=== PATIENT | male | born 1970 | race Caucasian/White ===

== ENCOUNTER 2021-11-02 18:28 | Inpatient (IN) | payer BC ==
[~2021-11-02] VITALS: Ht 190.5 cm; Wt 69.5 kg
[~2021-11-02 18:28] MED LIST: LEVEMIR FLEXPEN SC; NOVOLOG FLEX100 U/ML SC; [UNRECOGNIZED DRUG - CODE] PO
[2021-11-02 20:25] LABS: BASO % 0.3 % (0.0-2.0); EOS # 0.1 K/mm3 (0.0-0.7); EOS % 0.6 % (0.0-4.0); GRAN # 7.2 K/mm3 (1.4-6.5); GRAN % 73.6 % (42.2-75.2); LYMPH # 1.7 K/mm3 (1.2-3.4); LYMPH % 17.7 % (20.0-51.0); MEAN CELL VOLUME 88 fl (80.0-100.0); MEAN CORPUSCULAR HGB CONC 31 g/dl (33.0-37.0); MEAN PLATELET VOLUME 8.6 fl (7.4-10.4); MONO # 0.7 K/mm3 (0.1-0.6); MONO % 7.2 % (1.7-9.3); PLATELET COUNT 685 K/mm3 (130-400); RED BLOOD COUNT 3.16 M/mm3 (4.20-5.60); REDCELL DISTRIBUTION WIDTH-CV 14.4 % (11.5-14.5)
[2021-11-02 20:27] LABS: HEMATOCRIT 27.9 % (42.0-52.0); HEMOGLOBIN 8.6 g/dl (13.5-18.0); MEAN CORPUSCULAR HEMOGLOBIN 27 pg (27-31)
[2021-11-02 20:41] LABS: ALBUMIN 2.4 gm/dL (3.5-5.0); BILIRUBIN,TOTAL 0.3 mg/dL (0.2-1.2); C-REACTIVE PROTEIN 7.97 mg/dL (0.00-0.50); CALCIUM 8.9 mg/dL (8.4-10.2); CREATININE, serum 1.15 mg/dL (0.72-1.25); POTASSIUM 4.9 mmol/L (3.5-4.5); TOTAL PROTEIN 8.3 gm/dL (6.2-8.1)
[2021-11-02] MEDS ORDERED: AMITRIPTYLINE H25 M1 PO (22:20)
[2021-11-02] MEDS ORDERED: COZAAR 25MG25 MG/TAB PO (22:20)
[2021-11-02] MEDS ORDERED: LEVEMIR FLEX100 U/ML SQ (22:21)
[2021-11-02] MEDS ORDERED: FLOMAX 0.40.4 MG/CAP PO (22:21)
[2021-11-02] MEDS ORDERED: NOVOLOG FLEX100 U/ML SQ (22:21)
[2021-11-02] MEDS ORDERED: AMBIEN 5MG TABLE5 MG PO (22:21)
[2021-11-02] MEDS ORDERED: CLEOCIN HC150 MG/CAP PO (22:22)
[2021-11-02] MEDS ORDERED: ULTRAM 50MG TAB50 MG PO (22:22)
[2021-11-03] VITALS: BP 159/86; PULSE 104; TEMP 97.9
--- NOTE | 2021-11-03 05:48 | NUR ---
PT ADMITTED FROM ED. VITAL SIGNS STABLE. RECIEVED CT SCAN REPORT FROM [facility]N CONTACTED DIRECTLY FROM THEM. PT WAS TRANSFERED TO [facility]. SEE MAR/EMAR OTHER DETAILS.
== END 2021-11-03 03:10 | disposition short-term general hospital (02) | DRG 539 ==
LOC: COL.ER 18:28 → SURG 21:44
PROVIDERS: Nurse Practitioner; ADMIT Internal Medicine
DX: M86.9 Osteomyelitis, unspecified (principal); M72.6 Necrotizing fasciitis; E87.1 Hypo-osmolality and hyponatremia; E10.9 Type 1 diabetes mellitus without complications; I10 Essential (primary) hypertension; N40.0 Benign prostatic hyperplasia without lower urinary tract symptoms; D64.9 Anemia, unspecified; D75.839 Thrombocytosis, unspecified; E87.8 Other disorders of electrolyte and fluid balance, not elsewhere classified; E87.5 Hyperkalemia; Z79.4 Long term (current) use of insulin
CPT/HCPCS: 99223-AI; J1170; J2543; J3010; J3370; J7030; J7050; Q9967

== ENCOUNTER 2024-05-27 09:02 | Day surgery (SDC) | payer BC ==
[~2024-05-27] VITALS: Ht 190.5 cm; Wt 88.3 kg
[~2024-05-27 09:02] MED LIST changes: +AMBIEN 5MG TABLE5 MG PO; +AMITRIPTYLINE H25 M1 PO; +CLEOCIN HC150 MG/CAP PO; +COZAAR 25MG25 MG/TAB PO; +FLOMAX 0.40.4 MG/CAP PO; +Famotidine 20 MG TAB PO SCH; +LEVEMIR FLEX100 U/ML SQ; +LR 1,000 ML IV SCH; +Meclizine 25 MG TAB PO SCH; +NOVOLOG FLEX100 U/ML SQ; +ULTRAM 50MG TAB50 MG PO
[2024-05-27] MEDS ORDERED: Lidocaine PF 2% (20 MG/ML) 5 ML VIAL ONE (10:05)
[2024-05-27] MEDS ORDERED: fentaNYL 50 MCG/ML 5 ML VIAL ONE (10:05)
[2024-05-27] MEDS ORDERED: dexAMETHasone 10 MG/ML VIAL ONE (10:05)
[2024-05-27] MEDS ORDERED: Ondansetron 4 MG/2 ML VIAL ONE (10:05)
[2024-05-27] MEDS ORDERED: Rocuronium 50 MG/5 ML Multi-Dose VIAL ONE (10:06)
[2024-05-27 10:14] VITALS: BP 159/71; PULSE 91; TEMP 97.3
[2024-05-27] MEDS ORDERED: CEPHALEXIN500 M1 PO (10:30)
[2024-05-27] MEDS ORDERED: NEURONTIN300 MG/CAP PO (10:30)
[2024-05-27] MEDS ORDERED: VASOTEC 2.2.5 MG/TAB PO (10:31)
[2024-05-27] MEDS ORDERED: NORCO 325 MG-101 TAB PO (10:31)
[2024-05-27] MEDS ORDERED: Ibuprofen 600 MG TAB PO PRN (11:00)
[2024-05-27] MEDS ORDERED: Ondansetron 4 MG/2 ML VIAL IV PRN ×2 (11:00→11:15)
[2024-05-27] MEDS ORDERED: Acetaminophen 325 MG TAB PO PRN (11:00)
[2024-05-27] MEDS ORDERED: fentaNYL 50 MCG/ML 1 ML SYRINGE/VIAL [PACU/SDC ONLY] IV PRN (11:15)
[2024-05-27] MEDS ORDERED: HYDROmorphone 1 MG/1 ML SYRINGE [PACU/SDC ONLY] IV PRN (11:15)
[2024-05-27] MEDS ORDERED: hydrALAZINE 20 MG/ML 1 ML VIAL IV PRN (11:15)
[2024-05-27] MEDS ORDERED: Meperidine 50 MG/ML 1 ML VIAL IV PRN (11:15)
[2024-05-27 12:38] VITALS: TEMP 97.3
[2024-05-27] MEDS ORDERED: Ketorolac 30 MG/ML VIAL IV ONE (13:00)
[2024-05-27] MEDS ORDERED: fentaNYL 50 MCG/ML 2 ML VIAL IV ONE (13:00)
[2024-05-27 13:40] VITALS: BP 158/86; PULSE 93
--- NOTE | 2024-05-27 13:40 | NUR ---
IV TO INT. ASSISTED UP TO BATHROOM. GAIT STEADY WITH ONE PERSON ASSIST. CALL LIGHT IN REACH.
[2024-05-27 14:00] VITALS: BP 148/70; PULSE 94
--- NOTE | 2024-05-27 14:00 | NUR ---
PATIENT STATES HE WAS ABLE TO URINATE SOME. SITTING ON EDGE OF CART. EATING CHOCOLATE PUDDING. DENIES NAUSEA.
--- NOTE | 2024-05-27 14:11 | NUR ---
MEDICATED WITH NORCO 5MG ONE TAB AND TYLENOL 650MG PO FOR INCISIONAL PAINS. INSTRUCTED TO USED INTERMITTENT ICE AT HOME AND USE HEATING PAD ON LOW SITTING FOR ANY BACK DISCOMFORT. INT DISCONTINUED AND SITE IS FREE OF REDNESS. ASSISTED WITH DRESSING.
--- NOTE | 2024-05-27 14:28 | NUR ---
DISCHARGE INSTRUCTIONS GIVEN AND PATIENT VOICES UNDERSTANDING OF THESE. INSTRUCTED TO TAKE NORCO THAT HE HAS AT HOME FOR CHRONIC KNEE PAIN. ALSO INSTRUCTED THAT HE MAY TAKE IBPROFEN AND TO BEGIN THIS AT 1900. VOICES UNDERSTANDING OF THIS.
--- NOTE | 2024-05-27 14:34 | NUR ---
PATIENT DISCHARGED TO HOME DRIVEN BY FRIEND PER PRIVATE VEHICLE AND TAKEN TO CAR PER WHEELCHAIR BY [employer].
== END 2024-05-27 14:34 | disposition home or self-care (01) ==
LOC: SDCO 09:02
DX: K40.90 Unilateral inguinal hernia, without obstruction or gangrene, not specified as recurrent (principal); I82.4Z1 Acute embolism and thrombosis of unspecified deep veins of right distal lower extremity; E10.621 Type 1 diabetes mellitus with foot ulcer; E10.22 Type 1 diabetes mellitus with diabetic chronic kidney disease; I12.9 Hypertensive chronic kidney disease with stage 1 through stage 4 chronic kidney disease, or unspecified chronic kidney disease; N18.9 Chronic kidney disease, unspecified; D63.1 Anemia in chronic kidney disease; K86.81 Exocrine pancreatic insufficiency; Z79.4 Long term (current) use of insulin; Z79.899 Other long term (current) drug therapy; Z79.01 Long term (current) use of anticoagulants; Z79.2 Long term (current) use of antibiotics
CPT/HCPCS: C1781; J0690; J0737; J1100; J1170; J1885; J2405; J2704; J3010; J7120